=== PATIENT | male | born 1980 | race Caucasian/White ===

== ENCOUNTER 2017-01-16 18:13 | Inpatient (IN) | payer OTHER ==
[~2017-01-16] VITALS: Ht 175.3 cm; Wt 115.7 kg
--- NOTE | ~2017-01-16 | HC ---
[facility] [place] [address] CONSULTATION Name: JAMEY EATON Room #: 421-P [facility] IN .R.#: [id number] Admission: 01/16/17 Attend Phys: Raghav Parada DO Discharge: Date of : 80 Report #: [id number] THIS REPORT FOR: //name// CC: [facility] physician/PCP CASEY Parada PULMONARY CONSULTATION PRIMARY CARE PHYSICIAN: Dr. Gilliam. REFERRAL PHYSICIAN: Dr. Brewer. REASON FOR REFERRAL: Pulmonary embolus. HISTORY OF PRESENT ILLNESS: The patient is a 36-year-old -[place] male who presents to the hospital with left lower extremity swelling. He was subsequently found to have DVT along with moderate bilateral pulmonary embolus. A pulmonary consultation was requested. The patient has been in his usual state of health up to recently. He has hypertension and also has early onset diabetes. The patient noticed that he has had episodic swelling of the lower extremities in the past. He thought that was related to his antihypertensive medications. He is on lisinopril. About 2-3 weeks ago, he had a syncopal episode. He did not seek medical attention. He felt fine. Then, about a week and a half ago, he flew to [place] for a cruise. He returned recently. Around Friday evening, he noticed that his left leg began to swell quite rapidly. For that reason, he presented to Emergency Room. Otherwise, denies any past history of venous thromboembolic disease. He denies any family history of venous thromboembolic disease. He denies any recent surgery or trauma other than his recent travel. PAST MEDICAL HISTORY: As mentioned above including hypertension, diabetes mellitus, early onset. PAST SURGICAL HISTORY: None. ALLERGIES: None. HOME MEDICATIONS: Lisinopril, ____ 20 mg p.o. p.r.n. apparently he takes this for hypertension, metformin 1000 mg p.o. b.i.d. FAMILY HISTORY: Mother with hypertension. Father with diabetes. [facility] [address] [place] [address] CONSULTATION Name: JAMEY EATON Room #: 421-P [facility] IN [facility].#: [id number] Admission: 01/16/17 Attend Phys: Raghav Parada, Discharge: Date of : 80 Report #: [id number] SOCIAL HISTORY: Born and raised in [place], [place]. He has 2 children. He has a girlfriend who is also expecting. 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 He smokes 2 cigars per day. He drinks socially. REVIEW OF SYSTEMS: As mentioned above, otherwise 10-point system review are negative. PHYSICAL EXAMINATION: GENERAL: He is awake, alert, in no apparent distress. VITAL SIGNS: Temperature is 98.1 degrees Fahrenheit, pulse is 76, respiratory rate is 16, blood pressure is 163/131 mmHg; on admission, blood pressure was 210/130 mmHg, saturation 95%. HEENT: Normocephalic, atraumatic. NECK: Supple without any lymphadenopathy or thyromegaly. CHEST: Breath sounds are clear without any rales or wheezes. CARDIOVASCULAR: Normal S1, S2. There are no murmurs or gallop. There is no JVD. There is no carotid bruit. Pulses are 2+/4+ bilaterally. ABDOMEN: Soft, nontender. No organomegaly or masses felt. GENITOURINARY: Deferred. RECTAL: Deferred. EXTREMITIES: There is no edema, cyanosis or clubbing. LABORATORY DATA: CT chest angiogram review shows bilateral moderate pulmonary embolus, no focal deficit noted to suggest pulmonary infarction. Echocardiogram shows normal LV function, pulmonary artery pressure measured 50 mmHg, D-dimer was 4.6. Leg Doppler ultrasound showed left femoral popliteal DVT. Electrolytes are normal. Hemoglobin is 13.5, WBC is 8100. IMPRESSION: 1. Bilateral pulmonary embolus, left lower extremity deep venous thrombosis in this 36-year-old -[place] male. He recently went on a cruise. 2. Hypertension, uncontrolled. 3. Diabetes mellitus type 2, early onset. RECOMMENDATION AND DISCUSSION: The patient has provoked venous thromboembolic disease with his recent travel. It is unclear if his recent syncope prior to his travel is related to pulmonary embolus. I am incline to think that he did not have pulmonary embolus at that time, but had DVT and PE following his trip. The patient will be a candidate for anticoagulation. Oral anticoagulant choice could be either Coumadin or direct oral anticoagulant if covered by insurance. Pradaxa will be preferred given it is the only reversal agent so far. In terms of duration of anticoagulation, we will recommend at least 6-12 months of anticoagulant therapy given the thrombosis burden. Hypocoagulable panel will [address] [address] CONSULTATION Name: JAMEY EATON Anushka Room #: 421-P [facility] IN M.R.#: [id number] Admission: 01/16/17 Attend Phys: Raghav Parada, DO Discharge: Date of : 80 Report #: [id number] be recommended. I have discussed the above findings with the patient along with pathophysiology of pulmonary embolus along with treatment options. The patient voices understanding. Thank you for this consultation. <ELECTRONICALLY SIGNED> By: Bernabe Shin MD 01/19/17 1801 [id number] [id number] Bernabe Shin MD /nt
--- NOTE | ~2017-01-16 | 2DMMODE ---
[facility] [address] [place] [address] 2 D/M-MODE ECHOCARDIOGRAM Name: EATONJAMEY Room #: 421-P [facility] IN [facility]#: [id number] Admission: 01/16/17 Attend Phys: Raghav Parada, Discharge: Date of : 80 Date of Service: 01/17/17 1010 Report #: [id number] THIS REPORT FOR: //name// APPROVED REPORT Study performed: 01/17/2017 08:16:11 EXAM: Comprehensive 2D, Doppler, and color-flow Echocardiogram Patient Location: Echo lab Room #: 421 Status: routine BSA: 2.29 HR: 70 bpm BP: 163/131 mmHg Rhythm: NSR Other Information Study Quality: Good Indications Pulmonary Embolism Syncope Hx: HTN, DM, tobacco abuse, obesity 2D Dimensions RVDd: 34.82 mm LVEF(%): 57.77 (>50%) IVSd: 14.50 (7-11mm) LVOT Diam: 20.41 (18-24mm) LVDd: 39.55 mm PWd: 14.13 (7-11mm) Ascending Ao: 31.28 (22-36mm) LVDs: 27.70 (25-40mm) Aortic Root: 36.84 mm Marin's LVEF: 57.77 % Volumes Left Atrial Volume (Systole) Single Plane 4CH: 37.91 mL Single Plane 2CH: 54.01 mL LA ESV Index: 22.00 mL/m2 Aortic Valve AoV Peak Raghu.: 1.48 m/s AO Peak Gr.: 8.76 mmHg LVOT Max P.64 mmHg LVOT Max V: 1.19 m/s GLEN Vmax: 2.62 cm2 Mitral Valve [facility] [address] [place] [address] 2 D/M-MODE ECHOCARDIOGRAM Name: UMAJAMEY Anushka Room #: 421-P [facility] IN [facility]#: [id number] Admission: 01/16/17 Attend Phys: Raghav Parada, Discharge: Date of : 80 Date of Service: 01/17/17 1010 Report #: [id number] E/A Ratio: 1.1 MV Decel. Time: 192.23 ms MV E Max Raghu.: 1.09 m/s MV A Raghu.: 0.96 m/s MV PHT: 55.75 ms IVRT: 64.59 ms Pulmonary Valve PV Peak Raghu.: 1.33 m/s PV Peak Gr.: 7.04 mmHg Pulmonary Vein P Vein S: 0.48 m/s P Vein A: 0.29 m/s P Vein D: 0.72 m/s P Vein A Dur.: 143.0 msec P Vein S/D Ratio: 0.67 Tricuspid Valve TR Peak Raghu.: 3.25 m/s RAP Estimate: 5.00 mmHg TR Peak Gr.: 42.20 mmHg PA Pressure: 47.00 mmHg Left Ventricle The left ventricle is normal size. There is normal LV segmental wall motion. Mild to moderate concentric left ventricular hypertrophy. Left ventricular systolic function is normal. LVEF is 60%. Moderate diastolic dysfunction is present (pseudonormal filling). Right Ventricle The right ventricle is normal size. The right ventricular systolic function is normal. Atria The left atrium size is normal. Right atrium is at the upper limits of normal. Aortic Valve The aortic valve is normal in structure. No aortic regurgitation is present. There is no aortic valvular stenosis. Mitral Valve The mitral valve is normal in structure. Trace to mild mitral regurgitation. Tricuspid Valve The tricuspid valve is normal in structure. Mild tricuspid regurgitation. [address] [address] 2 D/M-MODE ECHOCARDIOGRAM Name: JAMEY EATON Room #: 421-P [facility]#: [id number] Admission: 01/16/17 Attend Phys: Raghav Parada, Discharge: Date of : 80 Date of Service: 01/17/17 1010 Report #: [id number] Pulmonic Valve The pulmonary valve is normal in structure. Trace pulmonic regurgitation. Great Vessels The aortic root is normal in size. The ascending aorta is normal in size. IVC is normal in size and collapses >50% with inspiration. Pericardium There is no pericardial effusion. <Conclusion> Left ventricular systolic function is normal. There is normal LV segmental wall motion. Moderate concentric left ventricular hypertrophy. LVEF is 60%. The aortic valve is normal in structure. No aortic regurgitation or stenosis The mitral valve is normal in structure. Trace to mild mitral regurgitation. Pulmonary artery pressure of 50mmHg There is no pericardial effusion. <ELECTRONICALLY SIGNED> By: Baltazar Gray MD, FACC 01/17/17 1010 1010 1010 Baltazar Gray MD, FACC /INF
--- NOTE | ~2017-01-16 | EKG ---
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
[2017-01-16 18:14] VITALS: BP 213/131
[2017-01-16] MEDS ORDERED: PRINIVIL40 MG PO (18:45)
[2017-01-16] MEDS ORDERED: REVATIO20 MG PO (18:45)
[2017-01-16] MEDS ORDERED: GLUCOPHAGE1000 MG PO (18:47)
[2017-01-16 21:40] LABS: BASOPHILS 1.1 % (0.0-2.0); EOSINOPHILS 5.1 % (0.0-3.0); HEMATOCRIT 40.1 % (42.0-52.0); HEMOGLOBIN 13.5 gm/dL (14.0-18.0); LYMPHOCYTES 36.5 % (24.0-44.0); MCH 27.4 pg (26.0-34.0); MCHC 33.6 g/dL (28.0-37.0); MCV 81.5 fL (80.0-100.0); MONOCYTES 8.2 % (1.0-8.0); PLATELET COUNT 225 thou/uL (150-400); POLYS 49.1 % (36.0-66.0); RBC 4.92 mil/uL (4.50-6.00); RDW 13.7 % (10.5-14.5); WBC 8.1 thou/uL (4.0-11.0)
[2017-01-16 21:47] LABS: MANUAL DIFF NO
[2017-01-16 21:52] LABS: CREATININE 1.1 mg/dL (0.7-1.3)
[2017-01-16 21:58] LABS: APTT 25.1 Seconds (24.5-32.8)
[2017-01-16 23:40] VITALS: BP 173/114
[2017-01-17 04:57] VITALS: BP 194/114
[2017-01-17 07:18] VITALS: BP 163/131
[2017-01-17 10:46] LABS: CHOLESTEROL 167 mg/dL (<200); HDL CHOLESTEROL 26 mg/dL (>40); LDL CHOLESTEROL 96 mg/dL (<100); TC:HDL 6.4 Ratio (Not establshd); TRIGLYCERIDE 225 mg/dL (<150); VLDL 45 mg/dL (<40)
[2017-01-17 10:47] LABS: APTT 28.2 Seconds (24.5-32.8)
[2017-01-17 16:09] VITALS: BP 152/107
[2017-01-17 19:39] VITALS: BP 167/95
[2017-01-18 03:17] VITALS: BP 168/110
[2017-01-18 05:06] VITALS: BP 157/102
[2017-01-18 06:00] LABS: HEMATOCRIT 40.7 % (42.0-52.0); HEMOGLOBIN 13.7 gm/dL (14.0-18.0); MCH 27.2 pg (26.0-34.0); MCHC 33.6 g/dL (28.0-37.0); MCV 80.9 fL (80.0-100.0); RBC 5.03 mil/uL (4.50-6.00); RDW 13.6 % (10.5-14.5); WBC 7.8 thou/uL (4.0-11.0)
[2017-01-18 06:09] LABS: ALBUMIN 2.9 g/dL (3.4-5.0); CALCIUM 8.9 mg/dL (8.5-10.1); POTASSIUM 3.8 mmol/L (3.5-5.1); TOTAL BILIRUBIN 0.3 mg/dL (<0.1-1.0)
[2017-01-18 07:50] VITALS: BP 162/101
[2017-01-18 16:09] VITALS: BP 152/95
[2017-01-18 19:31] VITALS: BP 150/100
[2017-01-19 03:45] VITALS: BP 153/89
[2017-01-19 06:27] LABS: HEMATOCRIT 43.2 % (42.0-52.0); HEMOGLOBIN 14.4 gm/dL (14.0-18.0); MCH 27.4 pg (26.0-34.0); MCHC 33.4 g/dL (28.0-37.0); MCV 82.1 fL (80.0-100.0); RBC 5.26 mil/uL (4.50-6.00); RDW 13.6 % (10.5-14.5); WBC 8.5 thou/uL (4.0-11.0)
[2017-01-19 06:43] LABS: ALBUMIN 2.9 g/dL (3.4-5.0); CALCIUM 9.4 mg/dL (8.5-10.1); CREATININE 1.1 mg/dL (0.7-1.3); TOTAL BILIRUBIN 0.4 mg/dL (<0.1-1.0); TOTAL PROTEIN 7.7 g/dL (6.4-8.2)
[2017-01-19 06:44] LABS: POTASSIUM 4.4 mmol/L (3.5-5.1)
[2017-01-19 07:23] VITALS: BP 167/104
[2017-01-19 17:05] VITALS: BP 164/99
[2017-01-19 21:30] VITALS: BP 157/101
[2017-01-20 04:30] VITALS: BP 136/84
[2017-01-20 06:07] LABS: HEMATOCRIT 42.6 % (42.0-52.0); HEMOGLOBIN 14.3 gm/dL (14.0-18.0); MCH 27.3 pg (26.0-34.0); MCHC 33.5 g/dL (28.0-37.0); MCV 81.5 fL (80.0-100.0); RBC 5.23 mil/uL (4.50-6.00); RDW 13.8 % (10.5-14.5); WBC 8.8 thou/uL (4.0-11.0)
[2017-01-20 06:30] LABS: ALBUMIN 2.9 g/dL (3.4-5.0); CALCIUM 8.7 mg/dL (8.5-10.1); CREATININE 1.2 mg/dL (0.7-1.3); POTASSIUM 3.5 mmol/L (3.5-5.1); TOTAL BILIRUBIN 0.4 mg/dL (<0.1-1.0); TOTAL PROTEIN 7.1 g/dL (6.4-8.2)
[2017-01-20 08:00] VITALS: BP 145/89
[2017-01-20] MEDS ORDERED: PRADAXA150 MG PO (09:49)
[2017-01-20] MEDS ORDERED: BYSTOLIC 5 MG5 M1 PO (09:52)
[2017-01-20] MEDS ORDERED: LIPITOR 20 MG T20 M1 PO (09:52)
[2017-01-20] MEDS ORDERED: NORVASC10 MG PO (09:53)
[2017-01-20] MEDS ORDERED: SPIRONOLACTONE25 M1 PO (09:53)
[2017-01-20 12:10] VITALS: BP 140/95
[2017-01-20 13:08] LABS: ANTITHROMBIN III 94 % (75-135); DIL. RUSSELL VIPER VENOM 42.4 sec (0.0-47.0)
[2017-01-20 15:30] VITALS: BP 141/80
[2017-01-20 15:44] VITALS: BP 140/95
[2017-01-23 19:12] LABS: PROTHROMBIN GENE MUTATION Negative (())
== END 2017-01-20 16:39 | disposition home or self-care (01) | DRG 299 ==
LOC: ER 18:13 → EROBS 23:00 → 4E 23:00
PROVIDERS: Emergency Medicine; Hospitalist; Internal Medicine Cardiovascular Disease; Nurse Practitioner Family
DX: I82.412 Acute embolism and thrombosis of left femoral vein (principal); I26.99 Other pulmonary embolism without acute cor pulmonale; D68.59 Other primary thrombophilia; I82.432 Acute embolism and thrombosis of left popliteal vein; I10 Essential (primary) hypertension; F17.210 Nicotine dependence, cigarettes, uncomplicated; E11.65 Type 2 diabetes mellitus with hyperglycemia; E78.5 Hyperlipidemia, unspecified; E66.01 Morbid (severe) obesity due to excess calories; Z68.37 Body mass index [BMI] 37.0-37.9, adult; Z82.49 Family history of ischemic heart disease and other diseases of the circulatory system; Z83.3 Family history of diabetes mellitus; Z79.899 Other long term (current) drug therapy
CPT/HCPCS: 10183

== ENCOUNTER 2019-06-05 19:35 | Emergency (ER) | payer OTHER ==
[~2019-06-05] VITALS: Ht 175.3 cm; Wt 108.0 kg
[~2019-06-05 19:35] MED LIST: BYSTOLIC 5 MG5 M1 PO; GLUCOPHAGE1000 MG PO; LIPITOR 20 MG T20 M1 PO; NORVASC10 MG PO; PRADAXA150 MG PO; PRINIVIL40 MG PO; REVATIO20 MG PO; SPIRONOLACTONE25 M1 PO
[2019-06-05 20:19] LABS: ABSOLUTE NEUTROPHILS 5.2 thou/uL (1.4-8.2); BASOPHILS 0.2 % (0.0-2.0); EOSINOPHILS 3.2 % (0.0-3.0); HEMATOCRIT 46.4 % (42.0-52.0); HEMOGLOBIN 15.3 gm/dL (14.0-18.0); LYMPHOCYTES 25.7 % (24.0-44.0); MCH 27.6 pg (26.0-34.0); MCV 83.6 fL (80.0-100.0); MONOCYTES 8.4 % (1.0-8.0); PLATELET COUNT 207 thou/uL (150-400); POLYS 62.5 % (36.0-66.0); RBC 5.55 mil/uL (4.50-6.00); RDW 13.8 % (10.5-14.5); WBC 8.4 thou/uL (4.0-11.0)
[2019-06-05 20:22] LABS: BE(vivo) -4.4 mmol/L (-2 to +3); HCO3 19.8 mmol/L (22.0-26.0); PCO2 VENOUS 34.4 mmHg (41.0-51.0); PO2 VENOUS 57.1 mmHg (35.0-45.0)
[2019-06-05 20:42] LABS: URINE BILIRUBIN NEGATIVE (Negative); URINE BLOOD TRACE (Negative); URINE CLARITY CLEAR; URINE COLOR YELLOW; URINE GLUCOSE-RANDOM* 3+ (Negative); URINE KETONES NEGATIVE (Negative); URINE LEUKOCYTES-REFLEX NEGATIVE (Negative); URINE NITRITE-REFLEX NEGATIVE (Negative); URINE PROTEIN (DIPSTICK) NEGATIVE (Negative); URINE UROBILINOGEN 0.2 E.U./dl (0.2-1.0)
[2019-06-05 20:44] LABS: CALCIUM 9.2 mg/dL (8.5-10.1); CREATININE 1.4 mg/dL (0.7-1.3); MAGNESIUM 1.8 mg/dL (1.8-2.4); PHOSPHORUS 3.9 mg/dL (2.5-4.9); POTASSIUM 4.8 mmol/L (3.5-5.1)
[2019-06-05] MEDS ORDERED: ZESTRIL40 MG PO (21:43)
[2019-06-05] MEDS ORDERED: JANUMET 50-1,01 EACH PO (21:43)
[2019-06-05] MEDS ORDERED: NOVOLOG FL100 UNIT/M SUBQ (21:43)
[2019-06-05 21:50] VITALS: BP 186/123
== END 2019-06-05 21:58 ==
LOC: ER 19:35
PROVIDERS: Emergency Medicine Emergency Medical Services
DX: E11.65 Type 2 diabetes mellitus with hyperglycemia (principal); I10 Essential (primary) hypertension; J45.909 Unspecified asthma, uncomplicated; F17.210 Nicotine dependence, cigarettes, uncomplicated; Z79.899 Other long term (current) drug therapy